=== PATIENT | female | born 1965 | race Caucasian/White ===

== ENCOUNTER → 2017-03-20 | Day surgery (SDC) | payer BC ==
[~2017-03-20] VITALS: Ht 157.5 cm; Wt 62.6 kg
[~2017-03-20] MED LIST: CALCIUM 600+D1 EAC2 PO; CRANBERRY400 M1 PO; EEMT DS 1.25-21 EACH PO; VITAMIN B-12500 MCG PO; VITAMIN D1000 UNIT PO
== END ==
LOC: GPOC 03-09 11:00 → GEND 07:49
PROC: 0DJD8ZZ Inspection of Lower Intestinal Tract, Via Natural or Artificial Opening Endoscopic (ICD-10-PCS; principal; 2017-03-20)
DX: Z12.11 Encounter for screening for malignant neoplasm of colon (principal); R73.03 Prediabetes; E78.5 Hyperlipidemia, unspecified; Z80.0 Family history of malignant neoplasm of digestive organs; Z98.890 Other specified postprocedural states; Z90.49 Acquired absence of other specified parts of digestive tract; Z90.710 Acquired absence of both cervix and uterus; Z79.899 Other long term (current) drug therapy
CPT/HCPCS: J1100; J2001; J2405; J7030